=== PATIENT | female | born 1995 | race Caucasian/White ===

== ENCOUNTER 2024-10-08 18:14 | Outpatient (CLI) | payer OTHER ==
[2024-10-08 17:56] VITALS: BP 104/69
[2024-10-08 19:38] VITALS: BP 104/69
== END 2024-10-08 19:40 | disposition home or self-care (01) ==
LOC: OBS/DEL 18:14
PROVIDERS: ATTEND Obstetrics & Gynecology
DX: O26.893 Other specified pregnancy related conditions, third trimester (principal); Z3A.31 31 weeks gestation of pregnancy

== ENCOUNTER 2024-11-05 16:17 | Outpatient (CLI) | payer OTHER | END 2024-11-05 17:19 | disposition home or self-care (01) | LOC: NST 16:17 | PROVIDERS: ATTEND Obstetrics & Gynecology Maternal & Fetal Medicine | DX: Z34.83 Encounter for supervision of other normal pregnancy, third trimester (principal) ==

== ENCOUNTER 2024-11-29 14:24 | Inpatient (IN) | payer OTHER ==
[~2024-11-29] VITALS: Ht 170.2 cm; Wt 3.2 kg
[2024-11-29] MEDS ORDERED: RINGERS SOLUTION,LACTATED 1,000 ML IV SCH (14:45)
[2024-11-29] MEDS ORDERED: CEFAZOLIN SODIUM 1,000 MG VIAL IV SCH (14:45)
[2024-11-29] MEDS ORDERED: CITRIC ACID/SODIUM CITRATE 30 ML BLIST.PACK PO SCH (14:45)
[2024-11-29] MEDS ORDERED: PRENATAL + DHA1 EAC1 PO (14:52)
[2024-11-29 15:19] VITALS: BP 109/72
[2024-11-29 15:20] VITALS: BP 106/72
[2024-11-29 15:49] LABS: HEMATOCRIT 35.4 % (36.0-45.00); MEAN CELL VOLUME 89.6 fL (80.00-100.00); MEAN CORPUSCULAR HEMOGLOBIN 30.4 pg (27.00-32.0); PLATELET COUNT 190 K/uL (150-450); RED BLOOD COUNT 3.96 M/uL (4.00-6.00); RED CELL DISTRIBUTION WIDTH 12.4 % (11.5-14.5)
[2024-11-29 16:07] LABS: INR 0.94; PARTIAL THROMBOPLASTIN TIME 29.7 SECONDS (22.0-34.0); PROTHROMBIN TIME 10.3 SECONDS (9.0-11.5)
[2024-11-29 16:12] LABS: BILIRUBIN TOTAL 0.54 mg/dL (0.3-1.2); CALCIUM 8.8 mg/dL (8.5-10.1); CREATININE SERUM 1.05 mg/dL (0.55-1.02); GFR 62.87; GLOBULINA 3.2 G/DL (2.4-3.5); POTASSIUM 4.29 mEq/L (3.5-5.1); TOTAL PROTEIN 6.2 gm/dL (6.4-8.2)
[2024-11-29] MEDS ORDERED: ERYTHROMYCIN BASE OPHT 1GM EACH TUBE OP ONE (16:17)
[2024-11-29] MEDS ORDERED: OXYTOCIN 10 UNITS/ML VIAL ONE (16:17)
[2024-11-29] MEDS ORDERED: KETOROLAC TROMETHAMINE 30 MG VIAL ONE (18:57)
[2024-11-29] MEDS ORDERED: OXYTOCIN 20 UNITS in RINGERS SOLUTION,LACTATED 1,000 ML IV SCH (19:30)
[2024-11-29] MEDS ORDERED: KETOROLAC TROMETHAMINE 30 MG VIAL IV NR (19:31)
[2024-11-29] MEDS ORDERED: MORPHINE SULFATE 4 MG/ML CARTRIDGE IV PRN (19:45)
[2024-11-29 19:53] VITALS: BP 117/70
[2024-11-29] MEDS ORDERED: SIMETHICONE 125 MG CAPSULE PO SCH (21:00)
[2024-11-29 21:33] LABS: HEMATOCRIT 38.1 % (36.0-45.00); MEAN CELL VOLUME 90.2 fL (80.00-100.00); MEAN CORPUSCULAR HEMOGLOBIN 30.7 pg (27.00-32.0); PLATELET COUNT 182 K/uL (150-450); RED BLOOD COUNT 4.22 M/uL (4.00-6.00); RED CELL DISTRIBUTION WIDTH 12.1 % (11.5-14.5)
[2024-11-30] VITALS: BP 107/72
[2024-11-30] MEDS ORDERED: KETOROLAC TROMETHAMINE 10 MG TABLET PO SCH
[2024-11-30] MEDS ORDERED: CEFAZOLIN SODIUM 1,000 MG VIAL IV SCH (01:00)
[2024-11-30 07:57] LABS: HEMATOCRIT 35.9 % (36.0-45.00); HEMOGLOBIN 12.3 g/dL (12.0-15.00); MEAN CELL VOLUME 89.2 fL (80.00-100.00); MEAN CORPUSCULAR HEMOGLOBIN 30.5 pg (27.00-32.0); MEAN CORPUSCULAR HGB CONC 34.2 g/dl (32.0-36.0); PLATELET COUNT 167 K/uL (150-450); RED BLOOD COUNT 4.02 M/uL (4.00-6.00); RED CELL DISTRIBUTION WIDTH 12.9 % (11.5-14.5)
[2024-11-30] MEDS ORDERED: OxyCODONE HCL 5 MG TABLET (ROXICODONE) PO SCH (08:00)
[2024-11-30 08:57] VITALS: BP 99/66
[2024-11-30] MEDS ORDERED: RINGERS SOLUTION,LACTATED 1,000 ML IV SCH (12:00)
[2024-11-30 16:00] VITALS: BP 119/80
[2024-12-01] VITALS: BP 107/71
[2024-12-01 09:18] VITALS: BP 126/78
== END 2024-12-01 13:55 | disposition home or self-care (01) | DRG 787 ==
LOC: LDR 14:24 → OB/GYN 14:24 → O/R 17:04 → OB/GYN 17:49
PROVIDERS: ADMIT Obstetrics & Gynecology; ATTEND Obstetrics & Gynecology
PROC: 4A1HXCZ Monitoring of Products of Conception, Cardiac Rate, External Approach (ICD-10-PCS; 2024-11-29)
PROC: 10D00Z1 Extraction of Products of Conception, Low, Open Approach (ICD-10-PCS; principal; 2024-11-29 20:45)
DX: O34.211 Maternal care for low transverse scar from previous cesarean delivery (principal); O41.03X0 Oligohydramnios, third trimester, not applicable or unspecified; O32.1XX0 Maternal care for breech presentation, not applicable or unspecified; Z3A.38 38 weeks gestation of pregnancy; Z37.0 Single live birth